=== PATIENT | male | born 1960 | race Hispanic/Latino ===

== ENCOUNTER 2018-12-03 10:18 | Emergency (ER) | payer OTHER ==
--- NOTE | 2018-12-03 10:56 | ER ---
Nurse's Notes [facility] Name: Josr Mock Age: 58 yrs Sex: Male : 1960 Arrival Date: 12/03/2018 Time: 10:22 Bed 13 Private MD: Diagnosis: Left foot pain;Inflammatory arthropathy Presentation: 12/03 10:25 Presenting complaint: Patient states: pain and mild redness to dorsum of left foot that aa5 began yesterday. Pt denies known injury. 10:25 Transition of care: patient was not received from another setting of care. Onset of aa5 symptoms was November 2018. Risk Assessment: Do you want to hurt yourself or someone else? Patient reports no desire to harm self or others. Initial Sepsis Screen: Does the patient meet any 2 criteria? No. Patient's initial sepsis screen is negative. Does the patient have a suspected source of infection? No. Patient's initial sepsis screen is negative. Care prior to arrival: None. 10:25 Method Of Arrival: Wheelchair aa5 10:25 Acuity: DYLON 3 aa5 Triage Assessment: 10:30 General: Appears in no apparent distress. Behavior is calm, cooperative. ls4 10:30 Pain: Complains of pain in left foot and dorsum of left foot Pain currently is 10 out ls4 of 10 on a pain scale. Neuro: No deficits noted. Cardiovascular: No deficits noted. Respiratory: No deficits noted. GI: No deficits noted. : No deficits noted. Musculoskeletal: Circulation, motion, and sensation intact. Capillary refill < 3 seconds, Range of motion: intact in all extremities. Historical: - Allergies: 10:25 No Known Allergies; aa5 - PMHx: 10:25 None; aa5 - PSHx: 10:25 None; aa5 - Immunization history:: Adult Immunizations up to date. - Social history:: Smoking status: Patient/guardian denies using tobacco. - Ebola Screening: : No symptoms or risks identified at this time. Screenin:36 Abuse screen: Denies threats or abuse. Denies injuries from another. Nutritional ls4 screening: No deficits noted. Tuberculosis screening: No symptoms or risk factors identified. Fall Risk None identified. Assessment: 10:32 General: Appears in no apparent distress. Behavior is calm. ls4 11:26 Injury Description: REDNESS TO DORSAL LEFT FOOT. ls4 Vital Signs: 10:27 BP 155 / 66; Pulse 70; Resp 16 S; Temp 97.8(O); Pulse Ox 95% on R/A; Weight 104.33 kg aa5 (R); Height 6 ft. 1 in. (185.42 cm) (R); Pain 10/10; 10:27 Body Mass Index 30.34 (104.33 kg, 185.42 cm) aa5 ED Course: 10:22 Patient arrived in ED. mr 10:31 Arm band placed on. aa5 10:32 Triage completed. aa5 10:33 Jose Goddard MD is Attending Physician. ps1 10:36 Patient has correct armband on for positive identification. Bed in low position. Call ls4 light in reach. Side rails up X 1. 10:36 No provider procedures requiring assistance completed. Patient did not have IV access ls4 during this emergency room visit. 10:38 Alissa Curtis, RN is Primary Nurse. ls4 Administered Medications: No medications were administered Outcome: 10:55 Discharge ordered by . ps1 11:16 Patient left the ED. iw 11:16 Discharged to home ambulatory. ls4 11:16 Condition: stable 11:16 Discharge instructions given to patient, family, Instructed on discharge instructions, follow up and referral plans. no drinking with medication, no driving heavy equipment, medication usage, safety practices. Signatures: Esthela Miranda Harriett Farooq, RN BRANDON Vicki Grover RN RN aa5 Jose Goddard MD MD ps1 Alissa Curtis RN RN ls4 Corrections: (The following items were deleted from the chart) 11:27 11:26 General: Appears in no apparent distress. Behavior is calm, ls4 ls4
--- NOTE | 2018-12-03 10:56 | EDPHYS ---
Physician Documentation [facility] Name: Josr Mock Age: 58 yrs Sex: Male : 1960 Arrival Date: 12/03/2018 Time: 10:22 Bed 13 Private MD: ED Physician Jose Goddard HPI: 12/03 10:50 This 58 yrs old Male presents to ER via Wheelchair with complaints of Foot ps1 Pain. 10:50 patient states that he has atraumatic left foot pain that started 3 days ago. He staets ps1 that he took off two days of work. There is a small amount of redness to the dorsal aspect of the foot. No fever. No history of gout. No new shoes. Pain rated as moderate. Not diabetic. . Historical: - Allergies: 10:25 No Known Allergies; aa5 - PMHx: 10:25 None; aa5 - PSHx: 10:25 None; aa5 - Immunization history:: Adult Immunizations up to date. - Social history:: Smoking status: Patient/guardian denies using tobacco. - Ebola Screening: : No symptoms or risks identified at this time. ROS: 10:50 Constitutional: Negative for fever, chills, and weight loss, Eyes: Negative for injury, ps1 pain, redness, and discharge, ENT: Negative for injury, pain, and discharge, Cardiovascular: Negative for chest pain, palpitations, and edema, Respiratory: Negative for shortness of breath, cough, wheezing, and pleuritic chest pain, Abdomen/GI: Negative for abdominal pain, nausea, vomiting, diarrhea, and constipation, Back: Negative for injury and pain, Neuro: Negative for headache, weakness, numbness, tingling, and seizure. 10:50 MS/extremity: Positive for pain, warmth, of the dorsum of left foot. Exam: 10:50 Constitutional: This is a well developed, well nourished patient who is awake, alert, ps1 and in no acute distress. Head/Face: Normocephalic, atraumatic. Eyes: Pupils equal round and reactive to light, extra-ocular motions intact. Lids and lashes normal. Conjunctiva and sclera are non-icteric and not injected. Cardiovascular: Regular rate and rhythm. No gallops, murmurs, or rubs. Normal PMI, no JVD. No pulse deficits. Respiratory: Lungs have equal breath sounds bilaterally, clear to auscultation and percussion. No rales, rhonchi or wheezes noted. No increased work of breathing, no retractions or nasal flaring. Abdomen/GI: Soft, non-tender, with normal bowel sounds. No distension or tympany. No guarding or rebound. No evidence of tenderness throughout. Skin: Warm, dry with normal turgor. Normal color with no rashes, no lesions, and no evidence of cellulitis. 10:50 Musculoskeletal/extremity: Extremities: grossly normal except: noted in the dorsum of left foot: erythema, pain. Vital Signs: 10:27 BP 155 / 66; Pulse 70; Resp 16 S; Temp 97.8(O); Pulse Ox 95% on R/A; Weight 104.33 kg aa5 (R); Height 6 ft. 1 in. (185.42 cm) (R); Pain 10/10; 10:27 Body Mass Index 30.34 (104.33 kg, 185.42 cm) aa5 MDM: 10:50 Data reviewed: vital signs, nurses notes, and as a result, I will discharge patient. ED ps1 course: seems more inflammatory than infectious. No fever. Indeterminate. Will treat OP with NSAID, medrol, and keflex. . 10:55 Patient medically screened. ps1 Administered Medications: No medications were administered Disposition: 12/03/18 10:55 Discharged to Home. Impression: Left foot pain, Inflammatory arthropathy. - Condition is Stable. - Discharge Instructions: Foot Pain. - Prescriptions for Anaprox DS 550 mg Oral Tablet - take 1 tablet by ORAL route every 12 hours As needed; 20 tablet. Keflex 500 mg Oral Capsule - take 1 capsule by ORAL route every 8 hours for 10 days; 30 capsule. Medrol (Faheem) 4 mg Oral Tablets, Dose Pack - take 1 tablet by ORAL route as directed - follow package instructions; 1 packet. - Work release form, Medication Reconciliation Form, Thank You Letter, Antibiotic Education, Prescription Opioid Use form. - Follow up: Private Physician; When: As needed; Reason: Further diagnostic work-up, Recheck today's complaints, Continuance of care. Follow up: Emergency Department; When: As needed; Reason: Fever > 102 F, Worsening of condition. - Problem is new. - Symptoms are unchanged. Signatures: Harriett Farooq RN RN iw Vicki Grover RN RN aa5 Jose Goddard MD MD ps1 Corrections: (The following items were deleted from the chart) 11:16 10:55 12/03/2018 10:55 Discharged to Home. Impression: Left foot pain; Inflammatory iw arthropathy. Condition is Stable. Forms are Medication Reconciliation Form, Thank You Letter, Antibiotic Education, Prescription Opioid Use. Follow up: Private Physician; When: As needed; Reason: Further diagnostic work-up, Recheck today's complaints, Continuance of care. Follow up: Emergency Department; When: As needed; Reason: Fever > 102 F, Worsening of condition. Problem is new. Symptoms are unchanged. ps1
== END 2018-12-03 11:16 | disposition home or self-care (01) ==
LOC: ER 10:18
DX: M12.872 Other specific arthropathies, not elsewhere classified, left ankle and foot (principal)
CPT/HCPCS: 99281

== ENCOUNTER 2018-12-28 17:42 | Emergency (ER) | payer OTHER ==
[2018-12-28] MEDS ORDERED: KETOROLAC 30 MG/ML INJ ONE (20:31)
--- NOTE | 2018-12-28 20:40 | RAD REPORT ---
EXAM DESCRIPTION: CT - Stone Protocol - 12/28/2018 8:31 pm CLINICAL HISTORY: Flank pain. ABD PAIN COMPARISON: No comparisons TECHNIQUE: Axial images were obtained without oral or IV contrast. Lack of contrast limits solid org an and vascular assessment. The [id number] spans the entirety of the system partially obscuring uppermost abdomen and lung bases. Coronal reformatted images were obtained and reviewed. All CT scans are performed using dose optimization technique as appropriate and may include automated exposure control or mA/KV adjustment according to patient size. FINDINGS: The lower lung del angel are clear. Imaged portions of the liver and spleen show no suspicious findings on non-contrast imaging. The panc reas and adrenal glands are normal. No pathologic lymphadenopathy in the abdomen or pelvis. No urinary tract stones or obstructive uropathy. No bowel obstruction, free air, free fluid or abscess. Prominent sigmoid diverticulosis is present wi thout diverticulitis. The appendix is not identified as a discrete structure, however, no secondary f indings of appendicitis are identified. No significant bony abnormality. Small fat containing left inguinal hernia. IMPRESSION: No urinary tract stones or obstructive uropathy.
[2018-12-28 20:48] LABS: Absolute Lymphocytes (CBC) 0.9 K/uL (0.7-4.9); Absolute Monocytes 0.6 K/uL (0.1-1.3); Absolute Neutrophil 10.9 K/uL (1.8-8.0); Basophils % 0.7 % (0-1.3); Eosinophils % 0.4 % (0-4.4); Hematocrit 36.5 % (39.6-49.0); Lymphocytes % 7.1 % (15.3-44.8); MPV 9.3 fL (7.6-11.3); Monocytes % 4.7 % (3.3-12.3); RBC Red Blood Cell Count 3.83 M/uL (4.33-5.43)
[2018-12-28 21:06] LABS: Potassium 3.8 mmol/L (3.5-5.1)
[2018-12-28 21:10] LABS: Urine Blood 1+ (NEG); Urine Glucose NEGATIVE (NEG); Urine Protein NEGATIVE (NEG)
[2018-12-28 21:38] LABS: Urine Bacteria <20 /HPF (NONE SEEN); Urine Culture Reflex Order NOT NEEDED
[2018-12-28] MEDS ORDERED: HYDROCODONE/APAP 5/325 MG TAB ONE (22:24)
--- NOTE | 2018-12-28 23:09 | ER ---
Nurse's Notes [facility] Name: Josr Mock Age: 58 yrs Sex: Male : 1960 Arrival Date: 12/28/2018 Time: 17:43 Bed 20 Private MD: Diagnosis: Low back pain Presentation: 12/28 18:05 Presenting complaint: Left low back pain that radiates to left leg since yesterday hb afternoon. Pain is worse with walking and position change. Denies injury. Transition of care: patient was not received from another setting of care. Onset of symptoms was December 27, 2018. Risk Assessment: Do you want to hurt yourself or someone else? Patient reports no desire to harm self or others. Care prior to arrival: None. 18:05 Method Of Arrival: Ambulatory hb 18:05 Acuity: DYLON 4 hb 20:29 Initial Sepsis Screen: Does the patient meet any 2 criteria? No. Patient's initial aj1 sepsis screen is negative. Does the patient have a suspected source of infection? Yes: Other: back pain. Historical: - Allergies: 18:07 No Known Allergies; hb - Home Meds: 18:07 None [Active]; hb - PMHx: 18:07 None; hb - PSHx: 18:07 None; hb - Immunization history:: Adult Immunizations up to date. - Social history:: Smoking status: Patient/guardian denies using tobacco. - Ebola Screening: : No symptoms or risks identified at this time. Screenin:46 Abuse screen: Denies threats or abuse. Denies injuries from another. Nutritional aj1 screening: No deficits noted. Tuberculosis screening: No symptoms or risk factors identified. Assessment: 19:46 General: Appears in no apparent distress. uncomfortable, Behavior is calm, cooperative, aj1 appropriate for age. Pain: Complains of pain in back Pain does not radiate. Pain currently is 10 out of 10 on a pain scale. Pain began 1 day ago. Aggravated by increased activity, repositioning. Neuro: Level of Consciousness is awake, alert, obeys commands. Cardiovascular: Patient's skin is warm and dry. Respiratory: Airway is patent Respiratory effort is even, unlabored, Respiratory pattern is regular, symmetrical. GI: No signs and/or symptoms were reported involving the gastrointestinal system. : No signs and/or symptoms were reported regarding the genitourinary system. EENT: No signs and/or symptoms were reported regarding the EENT system. Derm: No signs and/or symptoms reported regarding the dermatologic system. Skin is pink, warm \T\ dry. normal. Musculoskeletal: Range of motion: intact in all extremities. 21:01 Reassessment: Patient and/or family updated on plan of care and expected duration. Pain aj1 level reassessed. Patient is alert, oriented x 3, equal unlabored respirations, skin warm/dry/pink. Patient reports that he has had good pain relief with administration of IV Toradol. 22:16 Reassessment: Patient states that his pain is starting to come back. Notified Dr. jose Christie, order received. 23:22 Reassessment: Patient appears in no apparent distress at this time. Patient and/or ed1 family updated on plan of care and expected duration. Pain level reassessed. Patient is alert, oriented x 3, equal unlabored respirations, skin warm/dry/pink. Patient states feeling better. Patient states symptoms have improved. Vital Signs: 18:06 BP 153 / 79; Pulse 79; Resp 16; Temp 99.4; Pulse Ox 100% on R/A; Pain 10/10; hb 23:22 BP 146 / 82; Pulse 71; Resp 19; Temp 97.6(O); Pulse Ox 99% on R/A; Pain 4/10; ed1 ED Course: 17:43 Patient arrived in ED. as 18:06 Triage completed. hb 18:06 Arm band placed on. hb 19:35 Winston Christie MD is Attending Physician. gs 19:45 Maria Victoria Choe RN is Primary Nurse. aj1 19:46 Patient has correct armband on for positive identification. Bed in low position. Call aj1 light in reach. Side rails up X 1. 19:46 No provider procedures requiring assistance completed. aj1 20:20 Inserted saline lock: 20 gauge in right antecubital area, using aseptic technique. aj1 Blood collected. 20:[address] via wheelchair. vm2 20:31 CT Stone Protocol In Process Unspecified. EDMS 23:22 IV discontinued, intact, bleeding controlled, No redness/swelling at site. Pressure ed1 dressing applied. Administered Medications: 20:28 Drug: TORadol 30 mg Route: IVP; Site: right antecubital; aj1 21:00 Follow up: Response: No adverse reaction; Pain is decreased aj1 22:14 Drug: [place] 5 mg-325 mg 1 tabs Route: PO; aj1 23:23 Follow up: Response: No adverse reaction; Pain is decreased ed1 Outcome: 23:09 Discharge ordered by MD. colin 23:22 Discharged to home ambulatory, with family. ed1 23:22 Condition: good 23:22 Discharge instructions given to patient, Instructed on discharge instructions, follow up and referral plans. medication usage, Demonstrated understanding of instructions, follow-up care, medications, Prescriptions given X 2. 23:23 Patient left the ED. ed1 Signatures: Dispatcher [employer] EDMS Maria Victoria Choe RN RN aj1 Mariama Adame Erika, RN RN ed1 Chaya Gomes RN RN Cristy Dorsey 2 Winston Christie MD MD gs
--- NOTE | 2018-12-28 23:09 | EDPHYS ---
Physician Documentation [facility] Name: Josr Mock Age: 58 yrs Sex: Male : 1960 Arrival Date: 12/28/2018 Time: 17:43 Bed 20 Private MD: ED Physician Winston Christie HPI: 12/28 23:14 This 58 yrs old Male presents to ER via Ambulatory with complaints of Low Back gs Pain. 23:14 The symptoms are located in the left low back. The pain does not radiate. Onset: The gs symptoms/episode began/occurred yesterday, last night. Modifying factors: the patient symptoms are aggravated by movement. Associated signs and symptoms: Pertinent negatives: fever, chills. Severity of symptoms: At their worst the symptoms were severe, in the emergency department the symptoms have improved, mildly. The patient has experienced similar episodes in the past, a few times. 23:14 Associated signs and symptoms: Pertinent negatives: incontinence, numbness, tingling, gs urinary retention, weakness. Historical: - Allergies: 18:07 No Known Allergies; hb - Home Meds: 18:07 None [Active]; hb - PMHx: 18:07 None; hb - PSHx: 18:07 None; hb - Immunization history:: Adult Immunizations up to date. - Social history:: Smoking status: Patient/guardian denies using tobacco. - Ebola Screening: : No symptoms or risks identified at this time. ROS: 23:14 All other systems are negative. gs Exam: 23:14 Head/Face: Normocephalic, atraumatic. Eyes: Pupils equal round and reactive to light, gs extra-ocular motions intact. Lids and lashes normal. Conjunctiva and sclera are non-icteric and not injected. Cornea within normal limits. Periorbital areas with no swelling, redness, or edema. ENT: Nares patent. No nasal discharge, no septal abnormalities noted. Tympanic membranes are normal and external auditory canals are clear. Oropharynx with no redness, swelling, or masses, exudates, or evidence of obstruction, uvula midline. Mucous membranes moist. Neck: Trachea midline, no thyromegaly or masses palpated, and no cervical lymphadenopathy. Supple, full range of motion without nuchal rigidity, or vertebral point tenderness. No Meningismus. Chest/axilla: Normal chest wall appearance and motion. Nontender with no deformity. No lesions are appreciated. Cardiovascular: Regular rate and rhythm with a normal S1 and S2. No gallops, murmurs, or rubs. Normal PMI, no JVD. No pulse deficits. Respiratory: Lungs have equal breath sounds bilaterally, clear to auscultation and percussion. No rales, rhonchi or wheezes noted. No increased work of breathing, no retractions or nasal flaring. Abdomen/GI: Soft, non-tender, with normal bowel sounds. No distension or tympany. No guarding or rebound. No evidence of tenderness throughout. Skin: Warm, dry with normal turgor. Normal color with no rashes, no lesions, and no evidence of cellulitis. MS/ Extremity: Pulses equal, no cyanosis. Neurovascular intact. Full, normal range of motion. 23:14 Constitutional: The patient appears alert, awake, uncomfortable. 23:14 Back: pain, that is moderate, of the left low back. 23:14 Neuro: Cranial nerves: grossly normal, Motor: is normal, Sensation: no obvious gross deficits, Deep tendon reflexes are 2+ (normal) in the right patellar, right Achilles, left patellar and left Achilles. Vital Signs: 18:06 BP 153 / 79; Pulse 79; Resp 16; Temp 99.4; Pulse Ox 100% on R/A; Pain 10/10; hb 23:22 BP 146 / 82; Pulse 71; Resp 19; Temp 97.6(O); Pulse Ox 99% on R/A; Pain 4/10; ed1 MDM: 20:07 Patient medically screened. gs 23:14 Differential diagnosis: arthritis, fracture, sciatica, Herniated disc. Differential gs diagnosis: UTI, stone. Data reviewed: vital signs, nurses notes. Counseling: I had a detailed discussion with the patient and/or guardian regarding: the historical points, exam findings, and any diagnostic results supporting the discharge/admit diagnosis, lab results, radiology results, the need for outpatient follow up. Response to treatment: the patient's symptoms have resolved after treatment, the patient's condition has returned to base line, and as a result, I will discharge patient. 12/28 20:09 Order name: Urine Microscopic Only; Complete Time: 21:44 12/28 20:09 Order name: CBC with Diff 12/28 20:09 Order name: Basic Metabolic Panel; Complete Time: 21:44 gs 12/28 20:09 Order name: CT Stone Protocol; Complete Time: 20:53 gs 12/28 20:55 Order name: Urine Dipstick--Ancillary (enter results); Complete Time: 21:44 12/28 21:44 Order name: Flu; Complete Time: 22:57 gs 12/28 20:09 Order name: Urine Dipstick-Ancillary (obtain specimen); Complete Time: 20:57 Administered Medications: 20:28 Drug: TORadol 30 mg Route: IVP; Site: right antecubital; aj1 21:00 Follow up: Response: No adverse reaction; Pain is decreased aj1 22:14 Drug: [place] 5 mg-325 mg 1 tabs Route: PO; aj1 23:23 Follow up: Response: No adverse reaction; Pain is decreased ed1 Disposition: 12/28/18 23:09 Discharged to Home. Impression: Low back pain. - Condition is Stable. - Discharge Instructions: Chronic Back Pain, Managing Your Hypertension. - Prescriptions for Prednisone 20 mg Oral Tablet - take 1 tablet by ORAL route once daily for 5 days; 5 tablet. Tylenol- Codeine #4 300-60 mg Oral Tablet - take 1 tablet by ORAL route every 6 hours As needed; 12 tablet. - Work release form, Medication Reconciliation Form, Thank You Letter, Antibiotic Education, Prescription Opioid Use form. - Follow up: Private Physician; When: 1 - 2 days; Reason: Re-evaluation by your physician. Signatures: Dispatcher [employer] EDMS Maria Victoria Choe RN RN aj1 Bernie Mercado RN RN ed1 Chaya Gomes RN RN hb Starr, Gregory, MD MD Corrections: (The following items were deleted from the chart) 23:23 23:09 12/28/2018 23:09 Discharged to Home. Impression: Low back pain. Condition is ed1 Stable. Forms are Work release form, Medication Reconciliation Form, Thank You Letter, Antibiotic Education, Prescription Opioid Use. Follow up: Private Physician; When: 1 - 2 days; Reason: Re-evaluation by your physician.
[2018-12-29 00:20] LABS: Blood Morphology Comment NOT SEEN (NOT SEEN); Platelet Estimate ADEQ; Urine White Blood Cell Casts OK
== END 2018-12-28 23:23 | disposition home or self-care (01) ==
LOC: ER 17:42
DX: M54.5 Low back pain (principal)
CPT/HCPCS: 36415; 74176; 76377; 80048; 81003; 81015; 85025; 87804; 96374; 99284

== ENCOUNTER 2018-12-29 13:09 | Emergency (ER) | payer OTHER ==
[2018-12-29] MEDS ORDERED: MORPHINE 4 MG/ML SYR ONE ×3 (14:18→19:36)
[2018-12-29] MEDS ORDERED: DIAZEPAM 10 MG/2 ML INJ SYRINGE ONE ×2 (14:18→14:20)
[2018-12-29 14:22] LABS: Absolute Lymphocytes (CBC) 0.9 K/uL (0.7-4.9); Absolute Monocytes 0.7 K/uL (0.1-1.3); Absolute Neutrophil 14.3 K/uL (1.8-8.0); Basophils % 0.4 % (0-1.3); Eosinophils % 0.5 % (0-4.4); Hematocrit 37.5 % (39.6-49.0); Lymphocytes % 5.9 % (15.3-44.8); Monocytes % 4.3 % (3.3-12.3); RBC Red Blood Cell Count 3.97 M/uL (4.33-5.43)
[2018-12-29 14:56] LABS: Albumin 2.9 g/dL (3.4-5.0); Bilirubin Total 0.7 mg/dL (0.2-1.0); Potassium 4.1 mmol/L (3.5-5.1); Protein, Total 6.8 g/dL (6.4-8.2)
[2018-12-29] MEDS ORDERED: FENTANYL CITR 100 MCG/2 ML ONE (15:59)
--- NOTE | 2018-12-29 16:07 | RAD REPORT ---
EXAM DESCRIPTION: MRI - Lumbar Spine Wo Con - 12/29/2018 3:36 pm CLINICAL HISTORY: Left hip radiculopathy COMPARISON: None. TECHNIQUE: Sagittal T1, T2 and STIR weighted sequences were obtained. Axial T1 and T2 sequences were obtained through the lumbar disc levels. FINDINGS: L1-2 unremarkable Disc bulge L2-3 with mild ligamentum flavum hypertrophy. Minimal narrowing of the neural foramina irasema aterally Disc bulge, ligamentum flavum facet hypertrophy L3-4 resulting in mild to moderate narrowing of the r ight neural foramina. Mild narrowing left neural foramina. Right lateral recess is narrowed. Disc bulge, ligamentum flavum facet hypertrophy L4-5. Osteophytes. Small right posterolateral disc he rniation. Mild to moderate narrowing of the right neural foramina. Disc bulge and facet hypertrophy L5-S1 resulting mild narrowing the right neural foramina No significant abnormal signal within the bones IMPRESSION: Small right posterolateral disc herniation L4-5 Spondylosis L3-4 resulting in mild to moderate right foraminal stenosis
[2018-12-29 16:18] LABS: Blood Morphology Comment NOT SEEN (NOT SEEN); Platelet Estimate DECR
--- NOTE | 2018-12-29 16:32 | EDPHYS ---
Physician Documentation [facility] Name: Josr Mock Age: 58 yrs Sex: Male : 1960 Arrival Date: 12/29/2018 Time: 13:10 Bed 16 Private MD: None, None ED Physician Karely Sim HPI: 12/29 14:10 This 58 yrs old Male presents to ER via Wheelchair with complaints of Back ma2 Pain. 14:10 The patient presents with pain that is acute. The symptoms are located in the low back. ma2 Onset: The symptoms/episode began/occurred gradually, 1 day(s) ago. The pain does not radiate. Associated signs and symptoms: Pertinent negatives: constipation, fever, headache, weakness. Severity of symptoms: At their worst the symptoms were moderate, in the emergency department the symptoms are unchanged. The patient has not experienced similar symptoms in the past. Historical: - Allergies: 14:23 No Known Allergies; hb - Home Meds: 14:23 None [Active]; hb - PMHx: 14:23 None; hb - PSHx: 14:23 None; hb - Immunization history:: Adult Immunizations up to date. - Social history:: Smoking status: Patient/guardian denies using tobacco, Patient/guardian denies using alcohol, street drugs, The patient lives with family. - Ebola Screening: : Patient denies exposure to infectious person Patient denies travel to an Ebola-affected area in the 21 days before illness onset. - Family history:: not pertinent. ROS: 14:10 Constitutional: Negative for fever, chills, and weight loss, Cardiovascular: Negative ma2 for chest pain, palpitations, and edema, Respiratory: Negative for shortness of breath, cough, wheezing, and pleuritic chest pain, Abdomen/GI: Negative for abdominal pain, nausea, diarrhea, and constipation. 14:10 Back: Positive for pain at rest, pain with movement, Negative for injury or acute deformity. 14:10 All other systems are negative. Exam: 14:10 Constitutional: This is a well developed, well nourished patient who is awake, alert, ma2 and in no acute distress. Chest/axilla: Normal chest wall appearance and motion. Nontender with no deformity. No lesions are appreciated. Cardiovascular: Regular rate and rhythm with a normal S1 and S2. No gallops, murmurs, or rubs. Normal PMI, no JVD. No pulse deficits. Respiratory: Lungs have equal breath sounds bilaterally, clear to auscultation and percussion. No rales, rhonchi or wheezes noted. No increased work of breathing, no retractions or nasal flaring. Abdomen/GI: Soft, non-tender, with normal bowel sounds. No distension or tympany. No guarding or rebound. No evidence of tenderness throughout. Skin: Warm, dry with normal turgor. Normal color with no rashes, no lesions, and no evidence of cellulitis. MS/ Extremity: Pulses equal, no cyanosis. Neurovascular intact. Full, normal range of motion. Neuro: Awake and alert, GCS 15, oriented to person, place, time, and situation. Cranial nerves II-XII grossly intact. Motor strength 5/5 in all extremities. Sensory grossly intact. Cerebellar exam normal. Normal gait. 14:10 Back: pain, that is severe, ROM is painful, normal spinal alignment noted, vertebral tenderness, is appreciated at L1 and L2, muscle spasm, is appreciated in the left low back. Vital Signs: 13:32 BP 116 / 54; Pulse 66; Resp 16; Temp 98.0(TE); Pulse Ox 99% on R/A; Weight 99.79 kg; ss Height 6 ft. 1 in. (185.42 cm); Pain 9/10; 15:54 BP 137 / 72; Pulse 88; Resp 16; Pulse Ox 95% on R/A; Pain 10/10; hb 16:57 BP 147 / 72; Pulse 78; Resp 16; Pulse Ox 98% on R/A; Pain 8/10; hb 17:32 BP 146 / 63; Pulse 86; Resp 18; Pulse Ox 96% on R/A; hb 19:30 BP 159 / 78; Pulse 102; Resp 16; Pulse Ox 94% on R/A; jb4 20:00 BP 150 / 61; Pulse 85; Resp 16; Pulse Ox 94% on R/A; jb4 13:32 Body Mass Index 29.03 (99.79 kg, 185.42 cm) MDM: 13:27 Patient medically screened. ma2 14:10 Differential diagnosis: ruptured disc, Scoliosis sprain, vertebral fracture. ma2 16:30 Data reviewed: vital signs, nurses notes. Counseling: I had a detailed discussion with maSue the patient and/or guardian regarding: the historical points, exam findings, and any diagnostic results supporting the discharge/admit diagnosis, the presence of at least one elevated blood pressure reading (>120/80) during this emergency department visit, the need for outpatient follow up. Response to treatment: the patient's symptoms have markedly improved after treatment. 19:36 ED course: elevated wbc and crp, however no other component of sirs, his vs wnl, MRI w ma2 contrast of t and l spine showing no Spinal epidural abscess, he has no weakness able to walk aropund and pain improved . 12/29 13:53 Order name: CBC with Diff; Complete Time: 16:30 ma2 12/29 13:53 Order name: CMP; Complete Time: 15:24 ma2 12/29 13:53 Order name: MRI Lumbar Spine wo Con; Complete Time: 16:09 ma2 12/29 13:53 Order name: ESR; Complete Time: 16:30 ma2 12/29 13:53 Order name: CRP; Complete Time: 15:24 ma2 12/29 14:24 Order name: Manual Differential; Complete Time: 16:30 EDMS 12/29 16:44 Order name: Spine Lumbar W/Cont EDMS 12/29 18:35 Order name: Thoracic Spine W/Wo Contr; Complete Time: 19:35 EDMS Administered Medications: 14:16 Drug: Valium 5 mg Route: IVP; Site: right antecubital; hb 15:00 Follow up: Response: No adverse reaction; Pain is decreased hb 14:16 Drug: morphine 4 mg Route: IVP; Site: right antecubital; hb 15:52 Follow up: Response: No adverse reaction; Pain is decreased hb 15:52 Drug: fentaNYL (PF) 50 mcg Route: IVP; Site: right antecubital; hb 16:30 Follow up: Response: No adverse reaction; Pain is decreased hb 16:56 Drug: morphine 4 mg Route: IVP; Site: right antecubital; hb 16:56 Drug: Zofran 4 mg Route: IVP; Site: right antecubital; hb 19:31 Drug: Zofran 4 mg Route: IVP; Site: right antecubital; hb 20:00 Follow up: Response: No adverse reaction; Nausea is decreased; Administered by Masood Iyerb4 19:34 Drug: morphine 4 mg Route: IVP; Site: right antecubital; hb 20:00 Follow up: Response: No adverse reaction; Pain is decreased; Administered by BRANDON Iyer jb4 Disposition: 12/29/18 19:38 Discharged to Home. Impression: Low back pain. - Condition is Stable. - Discharge Instructions: Back Pain, Adult. - Prescriptions for Valium 10 mg Oral Tablet - take 1 tablet by ORAL route every 8 hours As needed; 20 tablet. Tramadol 50 mg Oral Tablet - take 1 tablet by ORAL route every 8 hours as needed; 12 tablet. - Family Work Release, Medication Reconciliation Form, Thank You Letter, Antibiotic Education, Prescription Opioid Use form. - Follow up: Private Physician; When: Tomorrow; Reason: If symptoms return, Continuance of care. Signatures: Dispatcher [employer] [facility] Kimberly Mae RN RN ss Page, Corey, PA PA cp Baxter, Heather, RN RN hb Bryson, James, RN RN jb4 Karely Sim MD MD ma2 Corrections: (The following items were deleted from the chart) 16:33 16:31 12/29/2018 16:31 Discharged to Home. Impression: Low back pain. Condition is ma2 Stable. Forms are Medication Reconciliation Form, Thank You Letter, Antibiotic Education, Prescription Opioid Use. Follow up: Private Physician; When: Tomorrow; Reason: Continuance of care. ma2 18:35 16:44 Thoracic Spine W/Con ordered. [facility] 20:49 19:38 12/29/2018 19:38 Discharged to Home. Impression: Low back pain. Condition is jb4 Stable. Prescriptions for Valium 10 mg Oral Tablet - take 1 tablet by ORAL route every 8 hours As needed; 20 tablet, Tramadol 50 mg Oral Tablet - take 1 tablet by ORAL route every 8 hours as needed; 12 tablet. and Forms are Medication Reconciliation Form, Thank You Letter, Antibiotic Education, Prescription Opioid Use. Follow up: Private Physician; When: Tomorrow; Reason: If symptoms return, Continuance of care. ma2
--- NOTE | 2018-12-29 16:32 | ER ---
Nurse's Notes [facility] Name: Josr Mock Age: 58 yrs Sex: Male : 1960 Arrival Date: 12/29/2018 Time: 13:10 Bed 16 Private MD: None, None Diagnosis: Low back pain Presentation: 12/29 13:32 Presenting complaint: Patient states: Seen last night for L lower back pain that began ss 2 days ago and was told to come back for MRI if symptoms worsen. Pt reports that medication prescribed last night had helped a little, but not much. Transition of care: patient was not received from another setting of care. Onset of symptoms was December 27, 2018. Risk Assessment: Do you want to hurt yourself or someone else? Patient reports no desire to harm self or others. Initial Sepsis Screen: Does the patient meet any 2 criteria? No. Patient's initial sepsis screen is negative. Does the patient have a suspected source of infection? No. Patient's initial sepsis screen is negative. Care prior to arrival: None. 13:32 Method Of Arrival: Wheelchair ss 13:32 Acuity: DYLON 4 ss Historical: - Allergies: 14:23 No Known Allergies; hb - Home Meds: 14:23 None [Active]; hb - PMHx: 14:23 None; hb - PSHx: 14:23 None; hb - Immunization history:: Adult Immunizations up to date. - Social history:: Smoking status: Patient/guardian denies using tobacco, Patient/guardian denies using alcohol, street drugs, The patient lives with family. - Ebola Screening: : Patient denies exposure to infectious person Patient denies travel to an Ebola-affected area in the 21 days before illness onset. - Family history:: not pertinent. Screenin:00 Abuse screen: Denies threats or abuse. Denies injuries from another. Nutritional hb screening: No deficits noted. Tuberculosis screening: No symptoms or risk factors identified. Fall Risk None identified. Assessment: 14:00 General: Appears in no apparent distress. uncomfortable, Behavior is calm, cooperative. hb Pain: Pain currently is 10 out of 10 on a pain scale. Neuro: Level of Consciousness is awake, alert, Oriented to person, place, time, situation. Cardiovascular: Capillary refill < 3 seconds Patient's skin is warm and dry. Respiratory: Airway is patent Respiratory effort is even, unlabored, Respiratory pattern is regular, symmetrical. GI: No signs and/or symptoms were reported involving the gastrointestinal system. : No signs and/or symptoms were reported regarding the genitourinary system. EENT: No signs and/or symptoms were reported regarding the EENT system. Derm: Skin is intact, is healthy with good turgor. Musculoskeletal: Reports severe low back pain that radiates to left leg. 15:00 Reassessment: Patient appears in no apparent distress at this time. Patient and/or hb family updated on plan of care and expected duration. Pain level reassessed. Patient is alert, oriented x 3, equal unlabored respirations, skin warm/dry/pink. 15:05 Reassessment: Pt to MRI. 15:52 Reassessment: Pt returned from MRI, c/o severe low back pain 10/10, grunting + facial hb grimace. Dr. Fay notified, fentanyl administered as ordered. Daughter remains at bedside. 16:45 Reassessment: Patient is alert, oriented x 3, equal unlabored respirations, skin hb warm/dry/pink. Reports pain 8/10, grimacing, Dr. Sim aware. Repeat morphine administered as ordered. VSS. Daughter remains at bedside. 17:30 Reassessment: Patient appears in no apparent distress at this time. Patient and/or hb family updated on plan of care and expected duration. Pain level reassessed. Patient is alert, oriented x 3, equal unlabored respirations, skin warm/dry/pink. 18:30 Reassessment: Patient appears in no apparent distress at this time. No changes from previously documented assessment. Patient and/or family updated on plan of care and expected duration. Pain level reassessed. Patient is alert, oriented x 3, equal unlabored respirations, skin warm/dry/pink. 19:20 Reassessment: Patient appears in no apparent distress at this time. Patient and/or jb4 family updated on plan of care and expected duration. Pain level reassessed. Patient is alert, oriented x 3, equal unlabored respirations, skin warm/dry/pink. Pt reports increased pain provider notified see [facility] for orders. 20:46 Reassessment: Patient appears in no apparent distress at this time. Patient and/or jb4 family updated on plan of care and expected duration. Pain level reassessed. Patient is alert, oriented x 3, equal unlabored respirations, skin warm/dry/pink. Patient states feeling better. Vital Signs: 13:32 BP 116 / 54; Pulse 66; Resp 16; Temp 98.0(TE); Pulse Ox 99% on R/A; Weight 99.79 kg; ss Height 6 ft. 1 in. (185.42 cm); Pain 9/10; 15:54 BP 137 / 72; Pulse 88; Resp 16; Pulse Ox 95% on R/A; Pain 10/10; hb 16:57 BP 147 / 72; Pulse 78; Resp 16; Pulse Ox 98% on R/A; Pain 8/10; hb 17:32 BP 146 / 63; Pulse 86; Resp 18; Pulse Ox 96% on R/A; hb 19:30 BP 159 / 78; Pulse 102; Resp 16; Pulse Ox 94% on R/A; jb4 20:00 BP 150 / 61; Pulse 85; Resp 16; Pulse Ox 94% on R/A; jb4 13:32 Body Mass Index 29.03 (99.79 kg, 185.42 cm) ED Course: 13:10 Patient arrived in ED. mr 13:11 None, None is Private Physician. mr 13:27 Karely Sim MD is Attending Physician. ma2 13:32 Arm band placed on right wrist. ss 13:33 Triage completed. ss 14:12 Inserted saline lock: 20 gauge in right antecubital area, using aseptic technique. hb Blood collected. 14:24 Bed in low position. Call light in reach. Side rails up X 1. hb 14:44 Chaya Gomes, RN is Primary Nurse. hb 15:06 Patient moved to [facility] via wheelchair. em2 15:36 MRI Lumbar Spine wo Con In Process Unspecified. EDMS 15:36 MRI completed. Patient tolerated well. em2 15:37 Patient moved back from MRI. em2 18:37 Thoracic Spine W/Wo Contr In Process Unspecified. EDMS 18:54 Spine Lumbar W/Cont In Process Unspecified. EDMS 20:20 No provider procedures requiring assistance completed. IV discontinued, intact, jb4 bleeding controlled. Administered Medications: 14:16 Drug: Valium 5 mg Route: IVP; Site: right antecubital; hb 15:00 Follow up: Response: No adverse reaction; Pain is decreased hb 14:16 Drug: morphine 4 mg Route: IVP; Site: right antecubital; hb 15:52 Follow up: Response: No adverse reaction; Pain is decreased hb 15:52 Drug: fentaNYL (PF) 50 mcg Route: IVP; Site: right antecubital; hb 16:30 Follow up: Response: No adverse reaction; Pain is decreased hb 16:56 Drug: morphine 4 mg Route: IVP; Site: right antecubital; hb 16:56 Drug: Zofran 4 mg Route: IVP; Site: right antecubital; hb 19:31 Drug: Zofran 4 mg Route: IVP; Site: right antecubital; hb 20:00 Follow up: Response: No adverse reaction; Nausea is decreased; Administered by BRANDON Iyerjb4 19:34 Drug: morphine 4 mg Route: IVP; Site: right antecubital; hb 20:00 Follow up: Response: No adverse reaction; Pain is decreased; Administered by BRANDON Iyer jb4 Intake: Outcome: 16:31 Discharge ordered by . jamila 19:38 Discharge ordered by MD. marino 20:20 Discharged to home ambulatory. jb4 20:20 Condition: stable 20:20 Discharge instructions given to patient, Instructed on discharge instructions, follow up and referral plans. medication usage, Demonstrated understanding of instructions, follow-up care, medications, Prescriptions given X 2. 20:49 Patient left the ED. jb4 Signatures: Dispatcher [employer] [facility] Esthela Miranda mr CarmelitaKimberly RN RN ss Montes, Enrique 2 Chaya Gomes RN RN hb Bryson, James, RN RN jb4 Alzahri, Mohammad, MD MD ma2 Corrections: (The following items were deleted from the chart) 16:58 16:57 BP 147 / 72; Pulse 78bpm; Resp 16bpm; Pulse Ox 98% RA; Pain 10/10; hb hb
[2018-12-29] MEDS ORDERED: ONDANSETRON 4 MG/2 ML VIAL ONE ×2 (16:54→19:36)
--- NOTE | 2018-12-29 19:24 | RAD REPORT ---
EXAM DESCRIPTION: MRI - Thoracic Spine W/Wo Contr - 12/29/2018 7:02 pm CLINICAL HISTORY: Left leg radiculopathy COMPARISON: None. TECHNIQUE: Sagittal T1 weighted, T2 weighted and T2 STIR weighted sequences were obtained. Axial T2 weighted images were obtained through each disc level. 20 cc MultiHance administered intravenously FINDINGS: Mild spondylosis involves the thoracic spine. A significant disc bulge is not seen. A disc herniation is not noted. The thecal sac is normal caliber. The neural foramina are patent. No abnormal enhancement seen The spinal cord is normal caliber and signal. No abnormal signal within the bones is noted. IMPRESSION: No significant abnormality displayed
--- NOTE | 2018-12-29 19:34 | RAD REPORT ---
EXAM DESCRIPTION: MRI - Spine Lumbar W/Cont - 12/29/2018 7:02 pm CLINICAL HISTORY: Left leg radiculopathy COMPARISON: Unenhanced MRI lumbar spine December 29, 2018 TECHNIQUE: Axial and sagittal magnetic resonance imaging of the lumbar spine obtained. 20 cc MultiHa nce administered intravenously. . FINDINGS: Abnormal signal is visualized within the medial aspect of the left psoas muscle at the L3 level. This area enhances IMPRESSION: Abnormal signal which enhances within the left psoas muscle at the L3 level likely indic ating a myositis. An abscess is not seen .
== END 2018-12-29 20:49 | disposition home or self-care (01) ==
LOC: ER 13:09
DX: M54.5 Low back pain (principal)
CPT/HCPCS: 36415; 72148; 72149; 72157; 80053; 85025; 85652; 86140; 96374; 96375; 99284; A9577; J2405; J3010; J3360

== ENCOUNTER 2019-01-03 19:38 | Emergency (ER) | payer OTHER ==
[2019-01-03 21:28] LABS: Absolute Lymphocytes (CBC) 0.6 K/uL (0.7-4.9); Absolute Neutrophil 12.2 K/uL (1.8-8.0); Basophils % 0.3 % (0-1.3); Eosinophils % 0.6 % (0-4.4); Hematocrit 36.9 % (39.6-49.0); Lymphocytes % 4.2 % (15.3-44.8); MPV 9.1 fL (7.6-11.3); Monocytes % 6.9 % (3.3-12.3); RBC Red Blood Cell Count 3.94 M/uL (4.33-5.43)
[2019-01-03] MEDS ORDERED: KETOROLAC 30 MG/ML INJ ONE (21:40)
[2019-01-03] MEDS ORDERED: DEXAMETHASONE 10 MG/ML VIAL ONE (21:40)
[2019-01-03] MEDS ORDERED: METHOCARBAMOL 1,000 MG/10 ML VIAL IV ONE (21:40)
[2019-01-03] MEDS ORDERED: NA CHLORIDE 0.9% 100 ML IV ONE (21:40)
[2019-01-03] MEDS ORDERED: NA CHLORIDE 0.9% 1,000 ML ONE ×2 (21:41→23:23)
[2019-01-03 21:45] LABS: ALT/SGPT 25 U/L (12-78); AST/SGOT 15 U/L (15-37); Albumin 2.8 g/dL (3.4-5.0); Alkaline Phosphatase 106 U/L (45-117); BUN Blood Urea Nitrogen 15 mg/dL (7-18); Bicarbonate 27 mmol/L (21-32); Bilirubin Direct 0.3 mg/dL (0-0.2); Bilirubin Total 0.7 mg/dL (0.2-1.0); Glucose Level 121 mg/dL (74-106); Lipase 59 U/L (73-393); Magnesium 2.1 mg/dL (1.8-2.4); Protein, Total 7.2 g/dL (6.4-8.2); Sodium Level 135 mmol/L (136-145)
[2019-01-03 21:58] LABS: Blood Morphology Comment NOT SEEN (NOT SEEN); Platelet Estimate ADEQ; Urine White Blood Cell Casts OK
--- NOTE | 2019-01-03 23:34 | EDPHYS ---
Physician Documentation [facility] Name: Josr Mock Age: 58 yrs Sex: Male : 1960 Arrival Date: 01/03/2019 Time: 19:56 Bed 15 Private MD: ED Physician Randall Perez HPI: 01/03 21:32 This 58 yrs old Male presents to ER via EMS with complaints of low back pain. jr8 21:32 The patient presents with pain that is acute. The symptoms are located in the low back. jr8 The pain does not radiate. The problem was sustained from unknown cause. Onset: The symptoms/episode began/occurred acutely, 1 week(s) ago. Modifying factors: The patient symptoms are alleviated by nothing, the patient symptoms are aggravated by any movement. Associated signs and symptoms: The patient has no apparent associated signs or symptoms. Severity of symptoms: At their worst the symptoms were moderate, in the emergency department the symptoms are unchanged. The patient has not experienced similar symptoms in the past. The patient has been recently seen by a physician:. Family stated that patient is getting worse. Started with back pain last week. Had MRI's completed showing bulging and disc herniation. Has appointment with spinal specialist tomorrow but is now to the point where he can no longer get up out of bed due to weakness and pain. Has not had bowel movement in 1 week. Still urinating. Denies saddle anesthesia, numbness, or tingling . Historical: - Allergies: 19:38 No Known Allergies; jb4 - Home Meds: 19:38 None [Active]; jb4 - PMHx: 19:38 None; jb4 - PSHx: 19:38 None; jb4 - Immunization history:: Adult Immunizations up to date. - Social history:: Smoking status: Patient/guardian denies using tobacco, Patient/guardian denies using alcohol. - Ebola Screening: : No symptoms or risks identified at this time. ROS: 21:32 Eyes: Negative for injury, pain, redness, and discharge, ENT: Negative for injury, jr8 pain, and discharge, Neck: Negative for injury, pain, and swelling, Cardiovascular: Negative for chest pain, palpitations, and edema, Respiratory: Negative for shortness of breath, cough, wheezing, and pleuritic chest pain, MS/Extremity: Negative for injury and deformity, Skin: Negative for injury, rash, and discoloration, Neuro: Negative for headache, weakness, numbness, tingling, and seizure. 21:32 Abdomen/GI: Positive for abdominal pain, constipation, Negative for nausea, vomiting, and diarrhea, abdominal distension. 21:32 Back: Positive for pain at rest, pain with movement, of the low back area. Exam: 22:50 Head/Face: Normocephalic, atraumatic. Eyes: Pupils equal round and reactive to light, jr8 extra-ocular motions intact. Lids and lashes normal. Conjunctiva and sclera are non-icteric and not injected. Cornea within normal limits. Periorbital areas with no swelling, redness, or edema. ENT: Nares patent. No nasal discharge, no septal abnormalities noted. Tympanic membranes are normal and external auditory canals are clear. Oropharynx with no redness, swelling, or masses, exudates, or evidence of obstruction, uvula midline. Mucous membranes moist. Neck: Trachea midline, no thyromegaly or masses palpated, and no cervical lymphadenopathy. Supple, full range of motion without nuchal rigidity, or vertebral point tenderness. No Meningismus. Cardiovascular: Regular rate and rhythm with a normal S1 and S2. No gallops, murmurs, or rubs. Normal PMI, no JVD. No pulse deficits. Respiratory: Lungs have equal breath sounds bilaterally, clear to auscultation and percussion. No rales, rhonchi or wheezes noted. No increased work of breathing, no retractions or nasal flaring. Abdomen/GI: Soft, non-tender, with normal bowel sounds. No distension or tympany. No guarding or rebound. No evidence of tenderness throughout. Skin: Warm, dry with normal turgor. Normal color with no rashes, no lesions, and no evidence of cellulitis. MS/ Extremity: Pulses equal, no cyanosis. Neurovascular intact. Full, normal range of motion. Neuro: Awake and alert, GCS 15, oriented to person, place, time, and situation. Cranial nerves II-XII grossly intact. Motor strength 5/5 in upper extremities and 3/5 in lower extremities. Sensory grossly intact. 22:50 Back: pain, that is moderate, of the low back area, ROM is painful, normal spinal alignment noted, CVA tenderness, is absent, vertebral tenderness, is appreciated at L2, L3, L4 and L5. Vital Signs: 19:38 BP 136 / 67; Pulse 80; Resp 18; Temp 98.5(O); Pulse Ox 98% on R/A; Weight 99.79 kg (R); jb4 Height 6 ft. 1 in. (185.42 cm) (R); Pain 9/10; 21:00 BP 135 / 65; Pulse 78; Resp 16; Pulse Ox 96% on R/A; jb4 22:00 BP 129 / 61; Pulse 74; Resp 16; Pulse Ox 97% on R/A; jb4 23:00 BP 141 / 67; Pulse 71; Resp 16; Pulse Ox 96% on R/A; jb4 01/04 00:00 BP 146 / 64; Pulse 77; Resp 16; Pulse Ox 99% on R/A; jb4 01:30 BP 138 / 61; Pulse 72; Resp 16; Pulse Ox 96% on R/A; jb4 01/03 19:38 Body Mass Index 29.03 (99.79 kg, 185.42 cm) jb4 MDM: 01/03 20:20 Patient medically screened. jr8 22:50 ED course: Patient very weak and unable to get out of bed due to weakness and pain jr8 combined. Reviewed MRI's completed. MRI with contrast noted a myositis of the psoas muscle. Labs indicate inflammatory process. Concerned for worsening of myositis along with disc herniation. Will attempt to transfer to [facility] for ortho spinal evaluation . 23:30 Data reviewed: vital signs, nurses notes, old medical records, lab test result(s), and jr8 as a result, I will admit patient. Data interpreted: Pulse oximetry: on room air is 98 %. Interpretation: normal. Counseling: I had a detailed discussion with the patient and/or guardian regarding: the historical points, exam findings, and any diagnostic results supporting the discharge/admit diagnosis, lab results, radiology results, the need to transfer to another facility, [facility] does not immediately have the required specialist. Response to treatment: the patient's symptoms have mildly improved after treatment, patient is well hydrated. 01/03 20:42 Order name: Basic Metabolic Panel; Complete Time: 21:59 jr8 01/03 20:42 Order name: CBC with Diff; Complete Time: 21:59 8 01/03 20:42 Order name: Creatinine for Radiology; Complete Time: 21:59 8 01/03 20:42 Order name: Hepatic Function; Complete Time: 21:59 8 01/03 20:42 Order name: Lipase; Complete Time: 21:59 jr8 01/03 20:42 Order name: Magnesium; Complete Time: 21:59 8 01/03 21:40 Order name: CBC Smear Scan; Complete Time: 21:59 EDMS 01/03 22:00 Order name: ESR; Complete Time: 22:42 jr8 01/03 22:00 Order name: CRP; Complete Time: 22:42 8 01/03 22:01 Order name: CK; Complete Time: 22:42 8 01/03 23:24 Order name: Blood Culture Adult (2) [facility] 01/03 20:42 Order name: IV Saline Lock; Complete Time: 21:22 8 01/03 20:42 Order name: Labs collected and sent; Complete Time: 21: [facility] 01/03 20:44 Order name: Glucose Level; Complete Time: 21:57 jr Administered Medications: 21:30 Drug: TORadol 30 mg Route: IVP; Site: right antecubital; jb4 22:00 Follow up: Response: No adverse reaction; Pain is decreased jb4 21:35 Drug: Decadron - Dexamethasone 10 mg Route: IVP; Site: right antecubital; jb4 22:00 Follow up: Response: No adverse reaction; Pain is decreased jb4 21:48 Drug: NS 0.9% 1000 ml Route: IV; Rate: 1000 ml; Site: right antecubital; jb4 22:30 Follow up: Response: No adverse reaction; IV Status: Completed infusion; IV Intake: jb4 1000ml 21:50 Drug: Robaxin 1 grams Route: IVPB; Infused Over: 1 hrs; Site: right antecubital; jb4 22:50 Follow up: Response: No adverse reaction; Pain is decreased; IV Status: Completed jb4 infusion 23:30 Drug: NS 0.9% 1000 ml Route: IV; Rate: 1 bolus; Site: right antecubital; jb4 01/04 00:15 Follow up: Response: No adverse reaction; IV Status: Completed infusion; IV Intake: jb4 1000ml Point of Care Testing: Blood Glucose: 01/03 21:24 Blood Glucose: 128 mg/dL; jb4 Ranges: Critical Glucose Levels:Adult <50 mg/dl or >400 mg/dl <40 mg/dl or >180 mg/dl Disposition: 01/04 06:45 Co-signature as Attending Physician, Randall Perez MD I agree with the assessment and tw4 plan of care. Disposition: 01/03/19 23:33 Transfer ordered to [facility]. Diagnosis are Lumbar Disc Herniation , Low back pain - intractable , Myositis. - Reason for transfer: Higher level of care. - Accepting physician is Dr. Cortes. - Condition is Stable. - Problem is new. - Symptoms have improved. Signatures: Dispatcher [employer] EDMS Bryce Wolf PA PA jr8 Jaylon Posada, RN RN jb4 Randall Perez MD MD tw4 Corrections: (The following items were deleted from the chart) 00:07 01/03 23:33 01/03/2019 23:33 Transfer ordered to [facility]. jr8 Diagnosis is Lumbar Disc Herniation ; Low back pain - intractable ; Myositis. Reason for transfer: Higher level of care. Accepting physician is [facility]. Condition is Stable. Problem is new. Symptoms have improved. jr8 01/04 01:56 00:07 01/03/2019 23:33 Transfer ordered to [facility]. Diagnosis is jb4 Lumbar Disc Herniation ; Low back pain - intractable ; Myositis. Reason for transfer: Higher level of care. Accepting physician is Dr. Cortes. Condition is Stable. Problem is new. Symptoms have improved. jr8
--- NOTE | 2019-01-03 23:34 | ER ---
Nurse's Notes [facility] Name: Josr Mock Age: 58 yrs Sex: Male : 1960 Arrival Date: 01/03/2019 Time: 19:56 Bed 15 Private MD: Diagnosis: Lumbar Disc Herniation ;Low back pain-intractable ;Myositis Presentation: 01/03 19:38 Presenting complaint: EMS states: Pt called reporting lower back pain. Has been seen in [facility] the ER previously and was diagnosed with herniated disc. Has a follow up appointment tomorrow. 19:38 Transition of care: patient was not received from another setting of care. Onset of [facility] symptoms was December 27, 2018. Risk Assessment: Do you want to hurt yourself or someone else? Patient reports no desire to harm self or others. Initial Sepsis Screen: Does the patient meet any 2 criteria? No. Patient's initial sepsis screen is negative. Does the patient have a suspected source of infection? No. Patient's initial sepsis screen is negative. Care prior to arrival: None. 19:38 Method Of Arrival: EMS: [facility] 19:38 Acuity: DYLON 3 jb4 Historical: - Allergies: 19:38 No Known Allergies; jb4 - Home Meds: 19:38 None [Active]; jb4 - PMHx: 19:38 None; jb4 - PSHx: 19:38 None; jb4 - Immunization history:: Adult Immunizations up to date. - Social history:: Smoking status: Patient/guardian denies using tobacco, Patient/guardian denies using alcohol. - Ebola Screening: : No symptoms or risks identified at this time. Screenin:38 Abuse screen: Denies threats or abuse. Nutritional screening: No deficits noted. jb4 Tuberculosis screening: No symptoms or risk factors identified. Fall Risk None identified. Assessment: 19:38 General: Appears in no apparent distress. uncomfortable, Behavior is calm, cooperative, jb4 appropriate for age. Pain: Complains of pain in low back area Pain does not radiate. Pain currently is 10 out of 10 on a pain scale. Quality of pain is described as stabbing. Neuro: Level of Consciousness is awake, alert, obeys commands, Oriented to person, place, time, situation. Cardiovascular: Patient's skin is warm and dry. Respiratory: Airway is patent Respiratory effort is even, unlabored, Respiratory pattern is regular, symmetrical. GI: No signs and/or symptoms were reported involving the gastrointestinal system. : No signs and/or symptoms were reported regarding the genitourinary system. EENT: No signs and/or symptoms were reported regarding the EENT system. Derm: Skin is intact, Skin is dry, Skin is pale, Skin temperature is cool. Musculoskeletal: pt has limited ROM from the waist down due to pain. 20:30 Reassessment: Patient appears in no apparent distress at this time. No changes from jb4 previously documented assessment. Patient and/or family updated on plan of care and expected duration. Pain level reassessed. Patient is alert, oriented x 3, equal unlabored respirations, skin warm/dry/pink. 21:30 Reassessment: Patient appears in no apparent distress at this time. No changes from jb4 previously documented assessment. Patient and/or family updated on plan of care and expected duration. Pain level reassessed. Patient is alert, oriented x 3, equal unlabored respirations, skin warm/dry/pink. 22:30 Reassessment: Patient appears in no apparent distress at this time. Patient and/or jb4 family updated on plan of care and expected duration. Pain level reassessed. Patient is alert, oriented x 3, equal unlabored respirations, skin warm/dry/pink. Patient states feeling better. 23:30 Reassessment: Patient appears in no apparent distress at this time. Patient and/or jb4 family updated on plan of care and expected duration. Pain level reassessed. Patient is alert, oriented x 3, equal unlabored respirations, skin warm/dry/pink. family at the bedside. Patient states feeling better. Patient states symptoms have improved. 01/04 00:30 Reassessment: Patient appears in no apparent distress at this time. Patient and/or jb4 family updated on plan of care and expected duration. Pain level reassessed. Patient is alert, oriented x 3, equal unlabored respirations, skin warm/dry/pink. report called to BRANDON Wilson at [facility]. Patient states feeling better. 01:52 Reassessment: Patient appears in no apparent distress at this time. Patient and/or jb4 family updated on plan of care and expected duration. Pain level reassessed. Patient is alert, oriented x 3, equal unlabored respirations, skin warm/dry/pink. PT transferred out VIA EMS. A\T\O x4 respirations even and unlabored. Vital Signs: 01/03 19:38 BP 136 / 67; Pulse 80; Resp 18; Temp 98.5(O); Pulse Ox 98% on R/A; Weight 99.79 kg (R); jb4 Height 6 ft. 1 in. (185.42 cm) (R); Pain 9/10; 21:00 BP 135 / 65; Pulse 78; Resp 16; Pulse Ox 96% on R/A; jb4 22:00 BP 129 / 61; Pulse 74; Resp 16; Pulse Ox 97% on R/A; jb4 23:00 BP 141 / 67; Pulse 71; Resp 16; Pulse Ox 96% on R/A; jb4 01/04 00:00 BP 146 / 64; Pulse 77; Resp 16; Pulse Ox 99% on R/A; jb4 01:30 BP 138 / 61; Pulse 72; Resp 16; Pulse Ox 96% on R/A; jb4 01/03 19:38 Body Mass Index 29.03 (99.79 kg, 185.42 cm) jb4 ED Course: 01/03 19:38 Arm band placed on right wrist. jb4 19:38 Patient has correct armband on for positive identification. Bed in low position. Call jb4 light in reach. Side rails up X 1. Pulse ox on. NIBP on. 19:56 Patient arrived in ED. jb4 19:57 Triage completed. jb4 20:13 [facility] jr8 20:13 Randall Perez MD is Attending Physician. jr8 21:04 Jaylon Posada RN is Primary Nurse. jb4 21:22 Initial lab(s) drawn, by ma, sent to lab. Inserted saline lock: 20 gauge in right lt1 antecubital area, using aseptic technique. 01/04 01:54 No provider procedures requiring assistance completed. Patient transferred, IV remains jb4 in place. Administered Medications: 01/03 21:30 Drug: TORadol 30 mg Route: IVP; Site: right antecubital; jb4 22:00 Follow up: Response: No adverse reaction; Pain is decreased jb4 21:35 Drug: Decadron - Dexamethasone 10 mg Route: IVP; Site: right antecubital; jb4 22:00 Follow up: Response: No adverse reaction; Pain is decreased jb4 21:48 Drug: NS 0.9% 1000 ml Route: IV; Rate: 1000 ml; Site: right antecubital; jb4 22:30 Follow up: Response: No adverse reaction; IV Status: Completed infusion; IV Intake: jb4 1000ml 21:50 Drug: Robaxin 1 grams Route: IVPB; Infused Over: 1 hrs; Site: right antecubital; jb4 22:50 Follow up: Response: No adverse reaction; Pain is decreased; IV Status: Completed jb4 infusion 23:30 Drug: NS 0.9% 1000 ml Route: IV; Rate: 1 bolus; Site: right antecubital; jb4 01/04 00:15 Follow up: Response: No adverse reaction; IV Status: Completed infusion; IV Intake: jb4 1000ml Point of Care Testing: Blood Glucose: 01/03 21:24 Blood Glucose: 128 mg/dL; jb4 Ranges: Intake: 22:30 IV: 1000ml; Total: 1000ml. jb4 01/04 00:15 IV: 1000ml; Total: 2000ml. jb4 Outcome: 01/03 23:33 ER care complete, transfer ordered by MD. pretty 01/04 01:54 Transferred to [facility]. jb4 Condition: stable Discharge instructions given to patient, family, Instructed on discharge instructions, Demonstrated understanding of instructions. 01:56 Patient left the ED. jb4 Addendum: 01/06/2019 08:46 Addendum: Culture Results: Positive blood culture. FAXED culture report to [facility]. Signatures: Kimberly Mae RN RN Bryce Nash PA PA jr8 Jaylon Posada RN RN jb4 Ana Lilia Vela [facility]
== END 2019-01-04 01:56 | disposition short-term general hospital (02) ==
LOC: ER 19:38
DX: M51.26 Other intervertebral disc displacement, lumbar region (principal); M60.9 Myositis, unspecified
CPT/HCPCS: 36415; 80048; 80076; 82550; 82962; 83690; 83735; 85025; 85652; 86140; 87040; 87077; 87186; 87205; 96361; 96365; 96375; 99285; J1100; J2800; J7030